=== PATIENT | female | born 1990 | race Caucasian/White ===

== ENCOUNTER 2018-11-20 14:50 | Outpatient (CLI) | payer OTHER ==
--- NOTE | 2018-11-20 15:59 | ULT ---
Obstetric sonogram HISTORY: Third trimester gestation. evaluation. FINDINGS: Multiple transabdominal sonographic views of the gravid uterus show a single intrauterine g estation in breech presentation. Grade 2 placenta is anterior. Four-chamber heart shows motion at 124 bpm. Amniotic fluid is within normal limits. No evidence of placenta previa. Three-vessel cord sh ows a normal insertion. No gross intracranial abnormalities are demonstrated. spine and kidneys are intact as visualized. Measurements are as follows: Biparietal diameter 26 weeks 5 days. Head circumference 20 weeks 6 days. Abdominal circumference 20 weeks 0 days. Femur length 27 weeks 6 days. Hadlock 16 percentile. Estimated date of delivery based on today's sonogram 02/13/2019. IMPRESSION: Single viable intrauterine gestation. Estimated gestational age based on today's sonogram 27 weeks 6 days.
== END 2018-11-20 14:51 | disposition home or self-care (01) ==
LOC: BICULT 14:50
PROVIDERS: ATTEND Nurse Practitioner
DX: Z34.82 Encounter for supervision of other normal pregnancy, second trimester (principal); Z3A.27 27 weeks gestation of pregnancy
CPT/HCPCS: 76805